=== PATIENT | female | born 1965 | race Native Hawaiian/Other Pacific Islander ===

== ENCOUNTER 2017-10-11 20:59 | Emergency (ER) | payer BC ==
[~2017-10-11] VITALS: Ht 157.5 cm; Wt 67.1 kg
[2017-10-11 22:41] VITALS: BP 144/81; TEMP 98.1
== END 2017-10-11 22:41 | disposition home or self-care (01) ==
LOC: ED 20:59
DX: M25.511 Pain in right shoulder (principal); M25.561 Pain in right knee; W01.0XXA Fall on same level from slipping, tripping and stumbling without subsequent striking against object, initial encounter; Y93.89 Activity, other specified; Y92.091 Bathroom in other non-institutional residence as the place of occurrence of the external cause
CPT/HCPCS: 96372; 99283; J1885

== ENCOUNTER 2019-02-22 13:58 | Outpatient (CLI) | payer OTHER | END 2019-02-22 20:11 | disposition home or self-care (01) | LOC: US 13:58 | DX: M79.605 Pain in left leg (principal); R22.42 Localized swelling, mass and lump, left lower limb ==